=== PATIENT | male | born 1955 | race Caucasian/White ===

== ENCOUNTER 2019-09-29 06:09 | Inpatient (IN) | payer BC ==
[2019-09-29] MEDS ORDERED: Diazepam 5 MG TAB ONE (07:29)
[2019-09-29] MEDS ORDERED: Fentanyl 100 MCG/2 ML VIAL ONE ×2 (08:42→09:29)
[2019-09-29] MEDS ORDERED: Midazolam HCl 2 mg/2 ml Vial ONE ×2 (08:42→09:29)
[2019-09-29] MEDS ORDERED: PHENYLEPHRINE-NS 100 MCG/ML 10 ML SYRINGE ONE ×3 (08:55→12:20)
[2019-09-29] MEDS ORDERED: Nitroglycerin 4.9 GM Bottle ONE (09:03)
[2019-09-29] MEDS ORDERED: Heparin 10,000 UNITS/1 ML VIAL ONE (09:11)
[2019-09-29] MEDS ORDERED: Nitroglycerin 2% Ointment 1 INCH/1 GM Packet ONE (09:19)
[2019-09-29] MEDS ORDERED: Midazolam HCl 5 mg/5 ml Vial ONE (09:29)
[2019-09-29] MEDS ORDERED: Dexmedetomidine 200 MCG/2 ML VIAL ONE (09:29)
[2019-09-29] MEDS ORDERED: Vecuronium 10 MG VIAL ONE ×3 (09:29→11:49)
[2019-09-29] MEDS ORDERED: Heparin 25,000 units/D5W 500 ML ONE (09:30)
[2019-09-29] MEDS ORDERED: Heparin 10,000 UNITS/1 ML VIAL 30,000 UNITS in Sodium Chloride 0.9% 1,000 ML FS SCH (10:00)
[2019-09-29] MEDS ORDERED: Albumin 5% 500 ML ONE (11:30)
[2019-09-29] MEDS ORDERED: Nitroglycerin 50 MG/250 ML BOT ONE (11:49)
[2019-09-29] MEDS ORDERED: Calcium Chloride 1 GM/10 ML Abboject SYRINGE ONE (11:49)
[2019-09-29] MEDS ORDERED: Protamine Sulfate 250 MG/25 ML VIAL ONE (11:49)
[2019-09-29] MEDS ORDERED: Lidocaine 2% PF 5 ML VIAL ONE (11:49)
[2019-09-29] MEDS ORDERED: Dexamethasone 20 MG/5 ML VIAL ONE (11:49)
[2019-09-29] MEDS ORDERED: Magnesium Sulfate 1 GM/2 ML VIAL ONE (11:49)
[2019-09-29] MEDS ORDERED: Thrombin 5000 UNITS/5 ML VIAL ONE (11:49)
[2019-09-29] MEDS ORDERED: Cardioplegic Soln 1,000 ML BAG ONE (11:49)
[2019-09-29] MEDS ORDERED: Papaverine 60 MG/2 ML VIAL ONE (11:49)
[2019-09-29] MEDS ORDERED: Potassium Chloride 60 MEQ/30 ML VIAL ONE (11:49)
[2019-09-29] MEDS ORDERED: EPHEDRINE 25 MG/5 ML SYRINGE ONE (11:49)
[2019-09-29] MEDS ORDERED: Heparin 5,000 UNITS/ML VIAL ONE (11:49)
[2019-09-29] MEDS ORDERED: Ketorolac Tromethamine 30 MG/ML VIAL ONE (11:49)
[2019-09-29] MEDS ORDERED: Sodium Bicarb 50 MEQ/50 ML Abboject 8.4% SYRINGE ONE (11:49)
[2019-09-29] MEDS ORDERED: Glycopyrrolate 0.2 MG/ML 5 ML SYRINGE ONE (11:49)
[2019-09-29] MEDS ORDERED: Heparin 30,000 units/30 ml VIAL ONE (11:49)
[2019-09-29] MEDS ORDERED: Esmolol 100 MG/10 ML VIAL ONE (11:49)
[2019-09-29] MEDS ORDERED: Aminocaproic Acid 5 GM/20 ML VIAL ONE (11:49)
[2019-09-29] MEDS ORDERED: Lidocaine 1% PF 5 ML VIAL ONE ×2 (11:49)
[2019-09-29] MEDS ORDERED: Ondansetron PF 4 MG/2 ML Vial ONE (11:49)
[2019-09-29] MEDS ORDERED: Phenylephrine 0.25% Nasal Spray 15 ML BOT ONE (12:20)
[2019-09-29] MEDS ORDERED: Phenylephrine 1% Nasal Spray 15 ML BOT ONE (12:20)
[2019-09-29] MEDS ORDERED: Iopamidol 370 76% 100 ML VIAL ONE (13:00)
[2019-09-29] MEDS ORDERED: Bisacodyl 5 MG TAB PO PRN (14:43)
[2019-09-29] MEDS ORDERED: Acetaminophen 325 MG TAB PO PRN (14:43)
[2019-09-29] MEDS ORDERED: Morphine 2 MG/ML VIAL SLOW IVP PRN (14:43)
[2019-09-29] MEDS ORDERED: niCARdipine 25 MG in Sodium Chloride 0.9% 250 ML 250 ML IVPB PRN (14:43)
[2019-09-29] MEDS ORDERED: Hetastarch 6% 500 ML 500 ML IVPB PRN (14:43)
[2019-09-29] MEDS ORDERED: Post-Op Insulin Drip Protocol IVPB ONE (14:43)
[2019-09-29] MEDS ORDERED: Magnesium 2 GM/50 ML 2 GM in Premix Bag 1 BAG IVPB SCH (14:43)
[2019-09-29] MEDS ORDERED: Mag-Al 1200 mg/1200 mg/30 ML UDCUP PO PRN (14:43)
[2019-09-29] MEDS ORDERED: Promethazine HCl 25 MG/ML VIAL IM PRN (14:43)
[2019-09-29] MEDS ORDERED: Guaifenesin DM 100-10/5 ML UDCUP PO PRN (14:43)
[2019-09-29] MEDS ORDERED: Nitroglycerin 50 MG/250 ML BOT 250 ML IVPB PRN (14:43)
[2019-09-29] MEDS ORDERED: Norepinephrine 8 MG/0.9% NS 250 ML IVPB PRN (14:43)
[2019-09-29] MEDS ORDERED: Fentanyl 100 MCG/2 ML VIAL SLOW IVP PRN ×2 (14:43)
[2019-09-29] MEDS ORDERED: hydrALAZINE 20 MG/ML VIAL SLOW IVP PRN (14:43)
[2019-09-29] MEDS ORDERED: Potassium Chloride 20 MEQ/100 ML PREMIX BAG IVPB PRN (14:43)
[2019-09-29] MEDS ORDERED: DOPamine 400 MG/D5W 250 ML 250 ML IVPB PRN (14:43)
[2019-09-29] MEDS ORDERED: Bisacodyl 10 MG SUPP PR PRN (14:43)
--- NOTE | 2019-09-29 14:56 | RAD ---
RADIOGRAPH CHEST 1 VIEW: DATE: 09/29/2019 TIME: 2:36 PM HISTORY: 64-year-old male status post open heart surgery COMPARISON: None FINDINGS: Supine positioning is relatively low sensitivity for pneumothorax detection. Visualized right lung kwan are essentially clear. No pulmonary edema. Opacification at left lung ba se with complete silhouetting of left hemidiaphragm. No pulmonary edema. Right subclavian central venous catheter in right atrium. Left paramedian mediastinal tube. Left lower chest tube. Sternotomy wires. IMPRESSION: Very recently status post open heart surgery with chest tubes and central line. Left lower lobe atelectasis
[2019-09-29 14:59] LABS: #Basophils 0.1 thou/uL (0.0-0.2); #Eosinphils 0.1 thou/uL (0.0-0.7); #Lymphocytes 1.6 thou/uL (1.20-3.40); #Monocytes 0.9 thou/uL (0.11-0.59); #Neutrophils 14.9 thou/uL (1.40-6.50); %Basophils 0.4 % (0.0-1.0); %Eosinophils 0.5 % (0.0-10.0); %Lymphocytes 9.2 % (21.0-51.0); %Monocytes 4.8 % (0.0-10.0); Hemoglobin 13.6 g/dL (14.0-18.0); Mean Corpuscular HGB CONC 33.9 g/dL (32.0-36.0); Mean Corpuscular Hemoglobin 31.4 pg (27.0-31.0); Mean Corpuscular Volume 92.7 fL (78.0-98.0); Mean Platelet Volume 7.7 fL (7.4-10.4); Platelet Count 170 thou/uL (130-400); RBC Distribution Width 11.7 % (11.5-14.5); Red Blood Cell (RBC) Count 4.32 mill/uL (4.70-6.10); White Blood Cell (WBC) Count 17.5 thou/uL (4.8-10.8)
[2019-09-29 15:04] LABS: INR-International Normal Ratio 1.4
[2019-09-29 15:05] LABS: PTT 29.2 sec (22.9-36.1)
[2019-09-29] MEDS: Lactated Ringer's 1,000 ML IV SCH (15:11)
[2019-09-29] MEDS ORDERED: Dextrose 5% in Water 1,000 ML IV PRN (15:13)
[2019-09-29] MEDS ORDERED: Dextrose 50% Abboject 50 ML SYRINGE SLOW IVP PRN (15:13)
[2019-09-29] MEDS ORDERED: HUMULIN R 100 UNITS in Sodium Chloride 0.9% 100 ML IVPB SCH (15:13)
[2019-09-29] MEDS ORDERED: Insulin Regular 300 UNITS/3 ML VIAL ONE (15:14)
[2019-09-29 15:23] LABS: Anion Gap 11 mmol/L (10-20); BUN (Urea Nitrogen) 17 mg/dL (8.4-25.7); Calc. Creatinine Clearance 119 mL/min (70-130); Calcium 7.2 mg/dL (7.8-10.44); Carbon Dioxide 19 mmol/L (23-31); Chloride 113 mmol/L (98-107); Estimated GFR-MDRD Greater than 90; Glucose 123 mg/dL (80-115); Potassium 4.1 mmol/L (3.5-5.1); Sodium 139 mmol/L (136-145)
[2019-09-29] MEDS: Insulin Regular 300 UNITS/3 ML VIAL SC PRN ×2 (15:38→21:10)
[2019-09-29] MEDS: CEFAZOLIN 2 GM in Premix Bag 1 BAG IVPB SCH ×2 (15:39→23:25)
[2019-09-29] MEDS: Ketorolac Tromethamine 30 MG/ML VIAL IVP SCH ×2 (16:56→23:25)
--- NOTE | 2019-09-29 17:24 | OP ---
DATE OF PROCEDURE: 09/29/2019 PREOPERATIVE DIAGNOSIS: Critical left main. POSTOPERATIVE DIAGNOSIS: Critical left main. PROCEDURE PERFORMED: Coronary artery bypass graft x4, left internal mammary artery to an LAD and diagonal as a sequential graft with the diagonal measuring about 1.25 to 1.5 and had calcification. The LAD measured about 1 to 1.25 and was free of disease. Saphenous vein graft to a 1.25 to 1.5 mm OM and 1.5 mm right coronary artery past the acute margin of the heart. SURGEON: Luis Daniel Su MD DRAFTER ASSISTANT: Jeffrey Gee MD TRANSFUSION: None. DESCRIPTION OF PROCEDURE: After adequate anesthesia had been obtained, the patient was prepped and draped. Initially, an endovascular vein harvest of the left greater saphenous vein was performed. However, Dr. Gee felt that it would not be long enough to do the required grafting and harvested a short segment of right thigh vein. 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 Simultaneously, I performed a median sternotomy, entering the right pleura in one small area and then entering the left pleura while harvesting the left internal mammary artery. Following this, the patient was heparinized. The mammary passed posterior to the thymus gland and the pericardium was incised to allow a more direct approach to the heart. Aorta and right atrium were cannulated. Cardiopulmonary bypass was begun. The vessels were inspected for grafting. Aorta was cross clamped and a liter of cold [place] cardioplegic solution was given. The right coronary, the OM, the diagonal, and the LAD anastomosis were all completed. Following which, the cross-clamp was removed and the partial occluding clamp placed. Two proximal anastomosis was performed on the aortic root and marked with rings. Following this, distal anastomosis were hemostatic and the patient was weaned from cardiopulmonary bypass. The cannulas were removed and protamine was given systemically. Following placement of mediastinal and bilateral pleural drains, the sternum was reapproximated with #7 interrupted wire using vancomycin paste on the sternal edges, platelet rich blood, and platelet poor plasma. Subcutaneous tissue and skin were closed in layers. Job ID: [id number]
[2019-09-29] MEDS: Famotidine/PF 20 mg/2ml Vial SLOW IVP SCH (20:13)
[2019-09-29 20:23] LABS: Hemoglobin 13.1 g/dL (14.0-18.0)
[2019-09-29] MEDS: HYDROcodone/Acetaminophen 5/325 mg Tablet PO PRN (20:30)
[2019-09-29] MEDS: Atorvastatin Calcium 10 MG TAB PO SCH (20:30)
[2019-09-29] MEDS: Ondansetron PF 4 MG/2 ML Vial IVP PRN (20:31)
[2019-09-29 20:33] LABS: Potassium 4.7 mmol/L (3.5-5.1)
[2019-09-30] MEDS: Ondansetron PF 4 MG/2 ML Vial IVP PRN ×2 (02:19→07:45)
[2019-09-30 03:36] LABS: #Lymphocytes 0.7 thou/uL (1.20-3.40); #Monocytes 1.2 thou/uL (0.11-0.59); #Neutrophils 10.8 thou/uL (1.40-6.50); %Basophils 0.1 % (0.0-1.0); %Eosinophils 0.1 % (0.0-10.0); %Lymphocytes 5.5 % (21.0-51.0); %Monocytes 9.2 % (0.0-10.0); Hemoglobin 11.5 g/dL (14.0-18.0); Mean Corpuscular HGB CONC 34.4 g/dL (32.0-36.0); Mean Corpuscular Hemoglobin 31.8 pg (27.0-31.0); Mean Corpuscular Volume 92.5 fL (78.0-98.0); Mean Platelet Volume 8.1 fL (7.4-10.4); Platelet Count 187 thou/uL (130-400); RBC Distribution Width 11.7 % (11.5-14.5); White Blood Cell (WBC) Count 12.7 thou/uL (4.8-10.8)
[2019-09-30 03:59] LABS: Anion Gap 9 mmol/L (10-20); BUN (Urea Nitrogen) 23 mg/dL (8.4-25.7); Calc. Creatinine Clearance 105 mL/min (70-130); Calcium 7.2 mg/dL (7.8-10.44); Carbon Dioxide 22 mmol/L (23-31); Chloride 112 mmol/L (98-107); Estimated GFR-MDRD 87; Glucose 133 mg/dL (80-115); Potassium 4.2 mmol/L (3.5-5.1); Sodium 139 mmol/L (136-145)
[2019-09-30] MEDS: Insulin Regular 300 UNITS/3 ML VIAL SC PRN ×2 (04:06→20:18)
[2019-09-30] MEDS: Lactated Ringer's 1,000 ML IV SCH ×2 (04:49→16:27)
[2019-09-30] MEDS: Ketorolac Tromethamine 30 MG/ML VIAL IVP SCH ×4 (06:15→23:31)
[2019-09-30] MEDS: Famotidine/PF 20 mg/2ml Vial SLOW IVP SCH ×2 (07:44→20:18)
[2019-09-30] MEDS: CEFAZOLIN 2 GM in Premix Bag 1 BAG IVPB SCH (07:46)
[2019-09-30] MEDS: Polyethylene Glycol 3350 17 GM Packet PO SCH (08:50)
[2019-09-30] MEDS: Aspirin 325 MG TAB PO SCH (08:50)
--- NOTE | 2019-09-30 08:58 | RAD ---
RADIOGRAPH CHEST 1 VIEW: DATE: 09/30/2019 TIME: 4:41 AM HISTORY: 64-year-old male status post open heart surgery COMPARISON: 09/29/2019 FINDINGS: Visualized right lung kwan are essentially clear. No pulmonary edema. Opacification at left lung ba se with complete silhouetting of left hemidiaphragm. No pulmonary edema. Right subclavian central venous catheter in right atrium. Left paramedian mediastinal tube. Left lower chest tube. Sternotomy wires. No interval change overall. IMPRESSION: recently status post open heart surgery with chest tubes and central line. Left lower lobe atelectasi s. No interval change.
[2019-09-30] MEDS: HYDROcodone/Acetaminophen 5/325 mg Tablet PO PRN (11:54)
[2019-09-30] MEDS: Atorvastatin Calcium 10 MG TAB PO SCH (20:18)
[2019-10-01 03:44] LABS: #Lymphocytes 1.8 thou/uL (1.20-3.40); #Monocytes 1.5 thou/uL (0.11-0.59); %Basophils 0.2 % (0.0-1.0); %Eosinophils 0.3 % (0.0-10.0); %Lymphocytes 17.2 % (21.0-51.0); %Monocytes 14.9 % (0.0-10.0); %Neutrophils 67.4 % (42.0-75.0); Mean Corpuscular HGB CONC 34.1 g/dL (32.0-36.0); Mean Corpuscular Hemoglobin 31.7 pg (27.0-31.0); Mean Corpuscular Volume 92.8 fL (78.0-98.0); Mean Platelet Volume 8.2 fL (7.4-10.4); Platelet Count 163 thou/uL (130-400); RBC Distribution Width 11.8 % (11.5-14.5); Red Blood Cell (RBC) Count 3.17 mill/uL (4.70-6.10); White Blood Cell (WBC) Count 10.3 thou/uL (4.8-10.8)
[2019-10-01 04:05] LABS: Anion Gap 7 mmol/L (10-20); BUN (Urea Nitrogen) 25 mg/dL (8.4-25.7); Calc. Creatinine Clearance 102 mL/min (70-130); Calcium 7.6 mg/dL (7.8-10.44); Carbon Dioxide 24 mmol/L (23-31); Chloride 110 mmol/L (98-107); Estimated GFR-MDRD 89; Glucose 103 mg/dL (80-115); Potassium 4.1 mmol/L (3.5-5.1); Sodium 137 mmol/L (136-145)
[2019-10-01] MEDS: Ketorolac Tromethamine 30 MG/ML VIAL IVP SCH ×3 (05:33→17:43)
[2019-10-01 07:00] VITALS: BMI 24.7
[2019-10-01] MEDS: Polyethylene Glycol 3350 17 GM Packet PO SCH (08:52)
[2019-10-01] MEDS: Aspirin 325 MG TAB PO SCH (08:52)
[2019-10-01] MEDS: Lactated Ringer's 1,000 ML IV SCH (08:52)
[2019-10-01] MEDS: Famotidine/PF 20 mg/2ml Vial SLOW IVP SCH (08:52)
--- NOTE | 2019-10-01 08:55 | RAD ---
RADIOGRAPH CHEST 1 VIEW: DATE: 10/01/2019 TIME: 5:14 AM HISTORY: 64-year-old male status post CABG COMPARISON: 09/30/2019, 09/29/2019 FINDINGS: Visualized right lung kwan are essentially clear. No pulmonary edema. Opacification at left lung ba se with complete silhouetting of left hemidiaphragm. No pulmonary edema. Right subclavian central venous catheter in right atrium. Left paramedian mediastinal tube. Left lower chest tube. Sternotomy wires. No interval change overall. IMPRESSION: recently status post open heart surgery with chest tubes and central line. Left lower lobe atelectasi s. No interval change.
[2019-10-01] MEDS ORDERED: Bisacodyl 5 MG TAB PO PRN (09:24)
[2019-10-01] MEDS ORDERED: Mag-Al 1200 mg/1200 mg/30 ML UDCUP PO PRN (09:24)
[2019-10-01] MEDS ORDERED: Mineral Oil ENEMA PR PRN (09:24)
[2019-10-01] MEDS ORDERED: Zolpidem Tartrate 5 MG TAB PO PRN (09:24)
[2019-10-01] MEDS ORDERED: Guaifenesin DM 100-10/5 ML UDCUP PO PRN (09:24)
[2019-10-01] MEDS ORDERED: Bisacodyl 10 MG SUPP PR PRN (09:24)
[2019-10-01] MEDS ORDERED: Nitroglycerin 0.4 MG TAB (25 Tab Bottle) SL PRN (09:24)
[2019-10-01] MEDS ORDERED: Artificial Tears 18 DROP/0.9 ML EA EYE PRN (09:24)
[2019-10-01] MEDS ORDERED: diphenhydrAMINE 25 MG CAP PO PRN (09:24)
[2019-10-01] MEDS: HYDROcodone/Acetaminophen 5/325 mg Tablet PO PRN ×2 (19:39→19:43)
[2019-10-01] MEDS: Atorvastatin Calcium 10 MG TAB PO SCH (19:39)
[2019-10-01] MEDS ORDERED: Metoprolol Tartrate 25 MG TAB PO SCH (21:00)
[2019-10-02] MEDS: HYDROcodone/Acetaminophen 5/325 mg Tablet PO PRN ×2 (02:44→22:32)
[2019-10-02] MEDS ORDERED: Aspirin 325 mg Enteric Coated Tablet PO SCH (09:00)
[2019-10-02] MEDS: Metoprolol Tartrate 25 MG TAB PO SCH ×2 (09:31→20:12)
[2019-10-02] MEDS: Furosemide 40 MG TAB PO SCH (09:31)
[2019-10-02] MEDS: Clopidogrel Bisulfate 75 MG TAB PO SCH (09:31)
[2019-10-02] MEDS: Aspirin 81 mg Enteric Coated Tablet PO SCH (09:32)
[2019-10-02] MEDS: Polyethylene Glycol 3350 17 GM Packet PO SCH (09:33)
--- NOTE | 2019-10-02 15:49 | PRG ---
DATE OF SERVICE: 10/02/2019 SUBJECTIVE: Mr. Casas says he just does not have as much energy today as he did yesterday. No chest pain or shortness of breath. No angina. OBJECTIVE: VITAL SIGNS: Blood pressure 144/73, pulse 70. LUNGS: Clear. CARDIAC: Normal S1. Normal S2. ABDOMEN: Soft and nontender. EXTREMITIES: No edema. ASSESSMENT: Status post bypass surgery. Some periods of what looks like atrial tachycardia, no recurrence. Plan: Agree with beta-blockers. Will change to long-acting beta-lise tomorrow. Possibly home tomorrow if he is feeling well. Aspirin and Plavix. Job ID: [id number]
[2019-10-02] MEDS: Atorvastatin Calcium 10 MG TAB PO SCH (20:11)
[2019-10-03] MEDS: Furosemide 40 MG TAB PO SCH (08:08)
[2019-10-03] MEDS: Metoprolol Tartrate 25 MG TAB PO SCH ×2 (08:08→21:18)
[2019-10-03] MEDS: Clopidogrel Bisulfate 75 MG TAB PO SCH (08:08)
[2019-10-03] MEDS: Aspirin 81 mg Enteric Coated Tablet PO SCH (08:08)
[2019-10-03] MEDS: Polyethylene Glycol 3350 17 GM Packet PO SCH (08:08)
--- NOTE | 2019-10-03 15:31 | PRG ---
DATE OF SERVICE: 10/03/2019 SUBJECTIVE: Mr. Casas is doing well. He has been up and walking in the [place]. Feels fine. No complaints. OBJECTIVE: VITAL SIGNS: Blood pressure 120/60, pulse 70 and it is regular. LUNGS: Clear. CARDIAC: Normal S1. Normal S2. ABDOMEN: Soft, nontender. EXTREMITIES: No edema. ASSESSMENT: Status post emergency coronary artery bypass graft for severe left main stenosis. PLAN: 1. Okay with me to go home any time. 2. We will increase statin to Crestor 20 mg a day. 3. Aspirin and Plavix. 4. Beta-blockers. Job ID: [id number]
[2019-10-03] MEDS ORDERED: Rosuvastatin 20 MG TAB PO SCH (21:00)
[2019-10-04] MEDS: HYDROcodone/Acetaminophen 5/325 mg Tablet PO PRN (08:34)
[2019-10-04] MEDS: Clopidogrel Bisulfate 75 MG TAB PO SCH (08:35)
[2019-10-04] MEDS: Aspirin 81 mg Enteric Coated Tablet PO SCH (08:35)
[2019-10-04] MEDS: Furosemide 40 MG TAB PO SCH (08:35)
[2019-10-04] MEDS: Polyethylene Glycol 3350 17 GM Packet PO SCH (08:36)
[2019-10-04 12:40] VITALS: BP 129/62; TEMP 98.2
--- NOTE | 2019-10-04 14:17 | DIS ---
DATE OF ADMISSION: 09/29/2019 DATE OF DISCHARGE: 10/04/2019 HOSPITAL COURSE: The patient was admitted and taken to the operating room on 09/28, following a cardiac catheterization, showing critical left main coronary disease. The patient's postoperative course was uneventful except for one very brief run of SVT while on the telemetry unit. He was progressing nicely with his weight of 165 pounds. Vital signs were good and his incisions were healing nicely. He is to be discharged home on Crestor 20, aspirin 81, Plavix 75 x 1 month, and metoprolol 25 b.i.d. Discharge and followup instructions have been given. Job ID: [id number]
== END 2019-10-04 13:15 | disposition home or self-care (01) | DRG 234 ==
LOC: CCL 06:09 → CCU 14:19 → 2NO 10-01 22:02
PROVIDERS: ADMIT Internal Medicine Cardiovascular Disease; ATTEND Internal Medicine Cardiovascular Disease
PROC: 021109W Bypass Coronary Artery, Two Arteries from Aorta with Autologous Venous Tissue, Open Approach (ICD-10-PCS; principal; 2019-09-29)
PROC: 4A023N7 Measurement of Cardiac Sampling and Pressure, Left Heart, Percutaneous Approach (ICD-10-PCS; 2019-09-29)
PROC: 02110Z9 Bypass Coronary Artery, Two Arteries from Left Internal Mammary, Open Approach (ICD-10-PCS; 2019-09-29)
PROC: 06BQ0ZZ Excision of Left Saphenous Vein, Open Approach (ICD-10-PCS; 2019-09-29)
PROC: 5A1221Z Performance of Cardiac Output, Continuous (ICD-10-PCS; 2019-09-29)
PROC: B2111ZZ Fluoroscopy of Multiple Coronary Arteries using Low Osmolar Contrast (ICD-10-PCS; 2019-09-29)
DX: I25.10 Atherosclerotic heart disease of native coronary artery without angina pectoris (principal); I47.1 Supraventricular tachycardia; Z79.899 Other long term (current) drug therapy; Z79.82 Long term (current) use of aspirin
CPT/HCPCS: 36415; 36416; 36430; 71045; 76942; 80048; 85025; 85347; 85610; 85730; 86850; 86900; 86901; 93005; 93010; 93458; 93798; 97139; 99152; J0690; J1100; J1265; J1644; J1815; J1885; J2250; J2405; J2440; J2720; J3010; J3370; J3475; J3480; J7050; P9045; Q9967; S0017; S0028

== ENCOUNTER 2021-03-13 15:49 | Emergency (ER) | payer BC | END 2021-03-13 18:47 | disposition home or self-care (01) | LOC: ERS 15:49 | DX: S86.001A Unspecified injury of right Achilles tendon, initial encounter (principal); Z79.82 Long term (current) use of aspirin; Z79.899 Other long term (current) drug therapy; X58.XXXA Exposure to other specified factors, initial encounter ==

== ENCOUNTER 2021-12-26 12:30 | Emergency (ER) | payer MEDICARE ==
[2021-12-26 14:36] LABS: #Basophils 0.1 thou/uL (0.0-0.2); #Lymphocytes 1.2 thou/uL (1.20-3.40); #Monocytes 0.6 thou/uL (0.11-0.59); #Neutrophils 10.4 thou/uL (1.40-6.50); %Basophils 0.4 % (0.0-1.0); %Eosinophils 0.1 % (0.0-10.0); %Lymphocytes 9.5 % (21.0-51.0); %Monocytes 4.5 % (0.0-10.0); %Neutrophils 85.4 % (42.0-75.0); Hemoglobin 15.3 g/dL (14.0-18.0); Mean Corpuscular HGB CONC 33.3 g/dL (32.0-36.0); Mean Corpuscular Hemoglobin 31.4 pg (27.0-31.0); Mean Corpuscular Volume 94.3 fL (78.0-98.0); Mean Platelet Volume 7.8 fL (7.4-10.4); Platelet Count 200 thou/uL (130-400); RBC Distribution Width 11.9 % (11.5-14.5); Red Blood Cell (RBC) Count 4.88 mill/uL (4.70-6.10); White Blood Cell (WBC) Count 12.2 thou/uL (4.8-10.8)
[2021-12-26 14:51] LABS: ALT (SGPT) 20 U/L (8-55); AST (SGOT) 22 U/L (5-34); Albumin 4.3 g/dL (3.4-4.8); Alkaline Phosphatase 69 U/L (40-110); Anion Gap 11 mmol/L (10-20); BUN (Urea Nitrogen) 19 mg/dL (8.4-25.7); Bilirubin, Total 0.7 mg/dL (0.2-1.2); CK (CPK) 102 U/L (30-200); Calc. Creatinine Clearance 0 mL/min (70-130); Calcium 8.9 mg/dL (7.8-10.44); Carbon Dioxide 22 mmol/L (23-31); Chloride 109 mmol/L (98-107); Estimated GFR 94; Globulin 2.7 g/dL (2.4-3.5); Glucose 92 mg/dL (80-115); Potassium 4.5 mmol/L (3.5-5.1); Sodium 137 mmol/L (136-145)
[2021-12-26] MEDS ORDERED: Acetaminophen 500 MG TAB ONE (16:08)
[2021-12-26 16:44] LABS: Troponin I Less than 0.010 ng/mL (< 0.028)
== END 2021-12-26 17:20 | disposition home or self-care (01) ==
LOC: ERS 12:30
DX: E86.0 Dehydration (principal)
CPT/HCPCS: 36415; 71045; 80053; 82550; 83605; 83880; 84484; 85025; 93005; 96360